=== PATIENT | female | born 2000 | race Caucasian/White ===

== ENCOUNTER 2020-02-11 10:07 | Emergency (ER) | payer OTHER, SELFPAY ==
[~2020-02-11] VITALS: Ht 162.6 cm; Wt 74.6 kg
[2020-02-11 12:02] LABS: BASO % 0.8 % (0.0-1.0); EOS # 0.1 10^3/uL (0.0-0.5); EOS % 2.7 % (0.0-3.0); HEMATOCRIT 40.2 % (36.0-47.0); HEMOGLOBIN 13.1 g/dl (12.0-15.5); LYMPH # 1.3 10^3/uL (1.5-5.0); LYMPH % 25.8 % (24.0-44.0); MEAN CORPUSCULAR HEMOGLOBIN 30.5 pg (27.0-33.0); MEAN CORPUSCULAR HGB CONC 32.6 g/dl (32.0-36.5); MEAN CORPUSCULAR VOLUME 93.7 fl (80.0-96.0); MONO # 0.5 10^3/uL (0.0-0.8); MONO % 8.8 % (0.0-5.0); NEUTROPHILS # 3.2 10^3/uL (1.5-8.5); NEUTROPHILS % 61.7 % (36.0-66.0); PLATELET COUNT, AUTOMATED 130 10^3/uL (150-450); RED BLOOD COUNT 4.29 10^6/uL (4.00-5.40); WHITE BLOOD COUNT 5.1 10^3/uL (4.0-10.0)
[2020-02-11 12:31] LABS: ALBUMIN 3.9 GM/DL (3.2-5.2); ALT/SGPT 26 U/L (12-78); BILIRUBIN,DIRECT 0.2 MG/DL (0.0-0.2); BILIRUBIN,TOTAL 0.7 MG/DL (0.2-1.0); BLOOD UREA NITROGEN 10 MG/DL (7-18); CALCIUM LEVEL 9.4 MG/DL (8.5-10.1); CARBON DIOXIDE LEVEL 27 MEQ/L (21-32); CHLORIDE LEVEL 105 MEQ/L (98-107); CREATININE FOR GFR 0.67 MG/DL (0.55-1.30); GLOMERULAR FILTRATION RATE > 60.0 (>60); GLUCOSE, FASTING 84 MG/DL (70-100); LIPASE 107 U/L (73-393); POTASSIUM SERUM 4.2 MEQ/L (3.5-5.1); SODIUM LEVEL 139 MEQ/L (136-145); TOTAL PROTEIN 7.3 GM/DL (6.4-8.2)
--- NOTE | 2020-02-11 12:42 | REP ---
Clinical: Recent head injury with headache and nausea . Comparison: None . Findings: The ventricles, sulci, and cisterns are normal in position and appearance. Cha-white differentiation is maintained. No acute intracranial hemorrhage, mass/mass effect, pathology or trauma/injury. No evidence for acute infarction. No extra-axial fluid collection. Calvarium is intact. Paranasal sinuses and mastoid air cells are clear. Impression: Normal noncontrast head CT. No evidence for acute intracranial pathology or trauma/injury. Electronically Signed by Hunter Caruso MD 02/11/2020 12:34 P
[2020-02-11 12:57] VITALS: BP 119/78
== END 2020-02-11 13:02 | disposition home or self-care (01) ==
LOC: M ED 10:07
DX: S09.90XA Unspecified injury of head, initial encounter (principal); G43.909 Migraine, unspecified, not intractable, without status migrainosus; R43.0 Anosmia; W22.8XXA Striking against or struck by other objects, initial encounter; Y92.89 Other specified places as the place of occurrence of the external cause; Y93.9 Activity, unspecified; Y99.9 Unspecified external cause status

== ENCOUNTER 2020-06-26 04:36 | Emergency (ER) | payer OTHER ==
[~2020-06-26] VITALS: Ht 162.6 cm; Wt 73.7 kg
[2020-06-26 04:37] VITALS: BP 126/75
[2020-06-26] MEDS ORDERED: BENZONATATE 100 MG CAP PO ONE (05:30)
[2020-06-26] MEDS ORDERED: TESS100C PO (05:31)
[2020-06-26] MEDS ORDERED: PROAAER10 INH (05:31)
== END 2020-06-26 05:48 | disposition home or self-care (01) ==
LOC: M ED 04:36
DX: J06.9 Acute upper respiratory infection, unspecified (principal); F17.290 Nicotine dependence, other tobacco product, uncomplicated

== ENCOUNTER 2022-03-20 07:40 | Inpatient (IN) | payer OTHER ==
[~2022-03-20] VITALS: Ht 162.6 cm; Wt 99.8 kg
[2022-03-20] VITALS (13 sets, daily range): BP systolic 130–176; BP diastolic 63–93
[~2022-03-20 07:40] MED LIST: PROAAER10 INH; TESS100C PO
[2022-03-20] MEDS ORDERED: PRENTAB9 PO (07:58)
[2022-03-20] MEDS ORDERED: HOME MED LIST COMPLETE! XX SCH (08:00)
[2022-03-20] MEDS ORDERED: LIDOCAINE 1% MDV 20ML VIAL INFIL PRN (09:45)
[2022-03-20] MEDS ORDERED: OXYTOCIN DRIP 30 UNITS in IV 1 EA IV PRN ×4 (09:45)
[2022-03-20] MEDS: miSOPROStol 25MCG 1/4 TABLET PO SCH ×4 (10:13→22:04)
[2022-03-20] MEDS: LR 1,000 ML IV SCH ×2 (10:13→17:45)
[2022-03-20 10:19] LABS: HEMATOCRIT 35.6 % (36.0-47.0); HEMOGLOBIN 12.1 g/dl (12.0-15.5); MEAN CORPUSCULAR HEMOGLOBIN 31.9 pg (27.0-33.0); MEAN CORPUSCULAR VOLUME 93.9 fl (80.0-96.0); RED BLOOD COUNT 3.79 10^6/uL (4.00-5.40); WHITE BLOOD COUNT 8.6 10^3/uL (4.0-10.0)
[2022-03-20 10:40] LABS: PLATELET COUNT, AUTOMATED 97 10^3/uL (150-450)
[2022-03-20] MEDS ORDERED: diphenhydrAMINE 50MG CAP PO ONE (23:00)
[2022-03-21 01:34] VITALS: BP 136/60
[2022-03-21] MEDS: miSOPROStol 25MCG 1/4 TABLET PO SCH ×2 (01:58→05:52)
[2022-03-21 03:28] VITALS: BP 137/86
[2022-03-21 05:28] VITALS: BP 140/72
[2022-03-21 07:27] VITALS: BP 146/68
[2022-03-21] MEDS: LR 1,000 ML IV SCH (09:08)
== END 2022-03-21 10:49 | disposition home or self-care (01) | DRG 833 ==
LOC: M LDI 07:40
PROVIDERS: ADMIT Obstetrics & Gynecology; ATTEND Obstetrics & Gynecology
PROC: 3E0P7GC Introduction of Other Therapeutic Substance into Female Reproductive, Via Natural or Artificial Opening (ICD-10-PCS; principal; 2022-03-20)
DX: O99.113 Other diseases of the blood and blood-forming organs and certain disorders involving the immune mechanism complicating pregnancy, third trimester (principal); Z3A.40 40 weeks gestation of pregnancy; O26.03 Excessive weight gain in pregnancy, third trimester; O61.0 Failed medical induction of labor; D69.6 Thrombocytopenia, unspecified

== ENCOUNTER 2022-03-24 07:32 | Inpatient (IN) | payer OTHER ==
[2022-03-24] VITALS (16 sets, daily range): BP systolic 105–187; BP diastolic 50–86
[~2022-03-24] VITALS: Ht 160 cm; Wt 103.1 kg
[~2022-03-24 07:32] MED LIST changes: +PRENTAB9 PO
[2022-03-24 08:38] LABS: HEMATOCRIT 35.3 % (36.0-47.0); HEMOGLOBIN 12.2 g/dl (12.0-15.5); MEAN CORPUSCULAR HEMOGLOBIN 32.4 pg (27.0-33.0); MEAN CORPUSCULAR HGB CONC 34.6 g/dl (32.0-36.5); MEAN CORPUSCULAR VOLUME 93.9 fl (80.0-96.0); PLATELET COUNT, AUTOMATED 106 10^3/uL (150-450); RED BLOOD COUNT 3.76 10^6/uL (4.00-5.40); WHITE BLOOD COUNT 8.7 10^3/uL (4.0-10.0)
[2022-03-24] MEDS ORDERED: METHYLERGONOVINE MALEATE 0.2 MG/ML VIAL (J2210) IM PRN (09:20)
[2022-03-24] MEDS ORDERED: OXYTOCIN INJ 10 UNITS/ML VIAL (J2590) IV PRN (09:20)
[2022-03-24] MEDS ORDERED: TRANEXAMIC ACID INJection 1,000 MG in NS 100 ML IV PRN (09:20)
[2022-03-24] MEDS ORDERED: LACTATED RINGER'S 1000 ML IV ONE (09:20)
[2022-03-24] MEDS ORDERED: OXYTOCIN DRIP 30 UNITS in IV 1 EA IV PRN ×4 (09:20)
[2022-03-24] MEDS ORDERED: miSOPROStol 50MCG 1/2 TABLET PO ONE ×3 (09:30→20:05)
[2022-03-24] MEDS: LR 1,000 ML IV SCH ×2 (09:39→17:58)
[2022-03-25] VITALS (19 sets, daily range): BP systolic 99–177; BP diastolic 51–91
[2022-03-25] MEDS: LR 1,000 ML IV SCH ×3 (05:47→16:14)
[2022-03-25 08:40] LABS: HEMATOCRIT 37.1 % (36.0-47.0); HEMOGLOBIN 12.7 g/dl (12.0-15.5); MEAN CORPUSCULAR HEMOGLOBIN 31.9 pg (27.0-33.0); MEAN CORPUSCULAR HGB CONC 34.2 g/dl (32.0-36.5); MEAN CORPUSCULAR VOLUME 93.2 fl (80.0-96.0); PLATELET COUNT, AUTOMATED 104 10^3/uL (150-450); RED BLOOD COUNT 3.98 10^6/uL (4.00-5.40)
[2022-03-25] MEDS ORDERED: BUTORPHANOL 2 MG/ML INJ (J0595) IV ONE (10:40)
[2022-03-25] MEDS ORDERED: PROMETHAZINE 25MG/ML 1ML VIAL IV ONE (10:40)
[2022-03-25] MEDS ORDERED: OXYTOCIN DRIP 30 UNITS in IV 1 EA IV SCH (15:40)
[2022-03-26] VITALS (26 sets, daily range): BP systolic 99–135; BP diastolic 51–83
[2022-03-26] MEDS ORDERED: ePHEDrine SULFATE 25 MG/5 ML(5MG/ML) SYRINGE IVP PRN (00:50)
[2022-03-26] MEDS ORDERED: NALOXONE INJ 0.4MG/1ML VIAL (J2310 PER 1MG) IV PRN (00:50)
[2022-03-26] MEDS ORDERED: EPIDURAL/PCA KEYS XX PRN (00:50)
[2022-03-26] MEDS ORDERED: LR 500 ML IV PRN (00:50)
[2022-03-26] MEDS ORDERED: diphenhydrAMINE 50MG/ML VIAL (J1200) IV PRN (00:50)
[2022-03-26] MEDS ORDERED: ONDANSETRON 4MG 2ML VIAL IV PRN ×2 (00:50→15:05)
[2022-03-26] MEDS: FENTANYL/ROPIVACAINE/NACL BAG 100 ML EPIDURAL SCH ×2 (01:17→09:57)
[2022-03-26] MEDS: PRENATAL VITAMINS CHEWABLE TABLET PO SCH (09:00)
[2022-03-26] MEDS ORDERED: LIDOCAINE 1% MDV 20ML VIAL As Ordered ONE (13:59)
[2022-03-26] MEDS: IBUPROFEN 800 MG TAB PO SCH ×2 (14:00→21:24)
[2022-03-26 14:13] LABS: CORD GAS ABE V -4.8; CORD GAS HCO3 V 21.5 MEQ/L; CORD GAS PCO2 V 44.3 mmHg; CORD GAS PH V 7.304 UNITS; CORD GAS PO2 V 22.4 mmHg; CORD GAS SBC V 19.4 MEQ/L; CORD GAS TCO2 V 22.9 MEQ/L
[2022-03-26 14:15] LABS: CORD GAS ABE A -8.3; CORD GAS HCO3 A 22.6 MEQ/L; CORD GAS O2 SAT A 41.1 %; CORD GAS PCO2 A 71.1 mmHg; CORD GAS PH A 7.12 UNITS; CORD GAS PO2 A 23.6 mmHg; CORD GAS SBC A 16.6 MEQ/L; CORD GAS TCO2 A 24.8 MEQ/L
[2022-03-26] MEDS ORDERED: LIDOCAINE 1% MDV 20ML VIAL SC ONE (14:20)
[2022-03-26] MEDS ORDERED: LR 1,000 ML IV SCH (15:05)
[2022-03-26] MEDS ORDERED: PROMETHAZINE 25 MG TAB PO PRN (15:05)
[2022-03-26] MEDS ORDERED: DIBUCAINE 1% OINTMENT 30GM TOP PRN (15:05)
[2022-03-26] MEDS ORDERED: RHOGAM 300 MCG (1500 IU) INJ (J2790) IM SCH (15:05)
[2022-03-26] MEDS ORDERED: METHYLERGONOVINE MALEATE 0.2 MG TAB PO PRN (15:05)
[2022-03-26] MEDS ORDERED: OXYTOCIN DRIP 30 UNITS in IV 1 EA IV SCH (15:05)
[2022-03-26] MEDS: ACETAMINOPHEN 500 MG TAB PO SCH ×2 (18:34→23:48)
[2022-03-26] MEDS: DOCUSATE SODIUM 100MG CAPSULE PO SCH (21:24)
[2022-03-27 06:00] VITALS: BP 128/59
[2022-03-27] MEDS: ACETAMINOPHEN 500 MG TAB PO SCH ×3 (06:08→17:52)
[2022-03-27] MEDS: IBUPROFEN 800 MG TAB PO SCH ×3 (06:08→22:24)
[2022-03-27 07:08] LABS: HEMATOCRIT 32.4 % (36.0-47.0); MEAN CORPUSCULAR HEMOGLOBIN 31.9 pg (27.0-33.0); MEAN CORPUSCULAR VOLUME 96.7 fl (80.0-96.0); RED BLOOD COUNT 3.35 10^6/uL (4.00-5.40); WHITE BLOOD COUNT 11.9 10^3/uL (4.0-10.0)
[2022-03-27 07:10] LABS: PLATELET COUNT, AUTOMATED 91 10^3/uL (150-450)
[2022-03-27 07:11] LABS: HEMOGLOBIN 10.7 g/dl (12.0-15.5)
[2022-03-27] MEDS ORDERED: PRENATAL VITAMINS CHEWABLE TABLET PO SCH (09:00)
[2022-03-27] MEDS: PRENATAL VITAMINS CHEWABLE TABLET PO SCH (09:48)
[2022-03-27] MEDS: DOCUSATE SODIUM 100MG CAPSULE PO SCH ×2 (09:48→20:39)
[2022-03-27 18:00] VITALS: BP 123/67
[2022-03-28] MEDS: ACETAMINOPHEN 500 MG TAB PO SCH ×3 (00:01→12:09)
[2022-03-28 06:00] VITALS: BP 124/83
[2022-03-28] MEDS: IBUPROFEN 800 MG TAB PO SCH (06:07)
[2022-03-28] MEDS ORDERED: IBUP80TA PO (07:02)
[2022-03-28] MEDS ORDERED: ACET-683 PO (07:02)
[2022-03-28] MEDS ORDERED: COLA100C5 PO (07:02)
[2022-03-28] MEDS: DOCUSATE SODIUM 100MG CAPSULE PO SCH (08:23)
[2022-03-28] MEDS: PRENATAL VITAMINS CHEWABLE TABLET PO SCH (08:23)
[2022-03-28] MEDS ORDERED: MEASLES,MUMPS,RUBELLA VACCINE INJ (MMR-II) (90707) SC.IMMUN ONE (09:00)
== END 2022-03-28 14:05 | disposition home or self-care (01) | DRG 807 ==
LOC: M LDI 07:32 → M OBS 03-26 16:42
PROVIDERS: ADMIT Obstetrics & Gynecology; ATTEND Obstetrics & Gynecology
PROC: 3E0P7GC Introduction of Other Therapeutic Substance into Female Reproductive, Via Natural or Artificial Opening (ICD-10-PCS; 2022-03-24)
PROC: 10E0XZZ Delivery of Products of Conception, External Approach (ICD-10-PCS; principal; 2022-03-26)
PROC: 0KQM0ZZ Repair Perineum Muscle, Open Approach (ICD-10-PCS; 2022-03-26)
DX: O48.0 Post-term pregnancy (principal); Z37.0 Single live birth; Z3A.41 41 weeks gestation of pregnancy; O70.1 Second degree perineal laceration during delivery